=== PATIENT | male | born 1955 | race African-American/Black ===

== ENCOUNTER 2017-11-15 07:53 | Observation (INO) | payer BC ==
[2017-11-15 08:20] LABS: Hemoglobin 12.2 g/dL (14.0-18.0); Mean Corpuscular HGB CONC 31.9 g/dL (32.0-36.0); Mean Corpuscular Hemoglobin 30.4 pg (27.0-31.0); Mean Corpuscular Volume 95.2 fl (80.0-94.0); Mean Platelet Volume 8.4 fL (7.4-10.4); Platelet Count 189 thou/uL (130-400); RBC Distribution Width 12.6 % (11.5-14.5); Red Blood Cell (RBC) Count 4.02 mill/uL (4.70-6.10); White Blood Cell (WBC) Count 6.3 thou/uL (4.8-10.8)
[2017-11-15 08:37] LABS: Band 6 % (5-11); Eosinophils 2 % (0-10); Lymphocytes 29 % (21-51); MDiff Complete? YES; Monocytes 8 % (0-10); Neutrophil 54 % (42-75); RBC Morphology Normal
[2017-11-15 08:40] LABS: ALT (SGPT) 26 U/L (8-55); AST (SGOT) 24 U/L (5-34); Alkaline Phosphatase 66 U/L (40-150); Anion Gap 12 mmol/L (10-20); BUN (Urea Nitrogen) 21 mg/dL (8.4-25.7); Bilirubin, Total 0.8 mg/dL (0.2-1.2); CK (CPK) 221 U/L (30-200); Calc. Creatinine Clearance 0 mL/min (70-130); Carbon Dioxide 26 mmol/L (23-31); Chloride 103 mmol/L (98-107); Estimated GFR-MDRD 62; Globulin 3.2 g/dL (2.4-3.5); Glucose 208 mg/dL (80-115); Potassium 3.9 mmol/L (3.5-5.1); Protein, Total 7.2 g/dL (5.8-8.1); Sodium 137 mmol/L (136-145)
[2017-11-15 08:45] LABS: CKMB 3.4 ng/mL (0-6.6); Troponin I 0.039 ng/mL (< 0.028)
--- NOTE | 2017-11-15 09:00 | RAD ---
PA AND LATERAL CHEST: Date: 11/15/17 HISTORY: Cough and chest discomfort. Back pain. COMPARISON: 11/14/15. FINDINGS: There has been interval resolution of the bilateral pleural effusions noted on the prior exam. The filiberto ngs are clear on today's examination. Cardiac silhouette is at the upper limits of normal to borderli ne enlarged. The pulmonary vasculature is within normal limits. Degenerative changes noted in the spi ne. No other interval change. IMPRESSION: 1. Resolution of bilateral pleural effusions. 2. No acute cardiopulmonary process. 3. Upper limits of normal to borderline cardiomegaly. POS: [facility]
[2017-11-15 11:56] LABS: Troponin I 0.043 ng/mL (< 0.028)
[2017-11-15 12:38] VITALS: BMI 36.2
[2017-11-15] MEDS ORDERED: Dextrose 50% Abboject 50 ML SYRINGE SLOW IVP PRN (13:47)
[2017-11-15] MEDS ORDERED: Acetaminophen 325 MG TAB PO PRN (13:47)
[2017-11-15] MEDS ORDERED: HumaLOG 300 UNITS/3 ML VIAL SC PRN ×2 (13:47)
[2017-11-15] MEDS ORDERED: Dextrose 5% in Water 1,000 ML IV PRN (13:47)
[2017-11-15] MEDS ORDERED: Ondansetron ODT 4 MG TAB PO PRN (13:47)
[2017-11-15] MEDS ORDERED: Docusate 100 MG CAP PO PRN (13:47)
[2017-11-15] MEDS ORDERED: hydrALAZINE 20 MG/ML VIAL SLOW IVP PRN (13:59)
[2017-11-15] MEDS ORDERED: Benzonatate 100 MG CAP PO PRN (14:01)
[2017-11-15] MEDS ORDERED: Furosemide 40 MG TAB PO SCH (14:15)
[2017-11-15 14:59] LABS: Troponin I 0.039 ng/mL (< 0.028)
[2017-11-15] MEDS: metFORMIN 500 MG TAB PO SCH (17:15)
--- NOTE | 2017-11-15 18:30 | HP-2 ---
CODE STATUS: FULL. PRIMARY CARE PHYSICIAN: [facility]. ATTENDING: Gaviota Lincoln MD RESIDENT: Jackelyn Samayoa DO HISTORIAN: Patient. CHIEF COMPLAINT: Chest pain with cough. HISTORY OF PRESENT ILLNESS: The patient is a 62-year-old male with past medical history of hypertens ion, diabetes, hyperlipidemia, obesity, diastolic CHF, and peripheral vascular disease who presented to ED with chest pain associated with cough x3 days. Reports that cough began first as dry and nonpr oductive. No fever, but does have night sweats and a "tickle in his throat." He has tried Anna-Selt zer to relieve the pain. He began having the chest pain after he coughed. Pain is sharp in nature a nd resolves after the coughing episode. The patient was seen in the ED, found to have a HEART score of 5 and indeterminate troponin, so was admitted to the hospital for chest pain rule out. PAST MEDICAL HISTORY: 1. Type 2 diabetes. 2. Hypertension. 3. Obesity. 4. Diastolic congestive heart failure with a most recent echo in 2016 with ejection fraction of 60%- 65%. 5. Hyperlipidemia. 6. Peripheral vascular disease, status post 3 toe amputations. PAST SURGICAL HISTORY: 1. Amputation of left first, second, and third digits. 2. Bilateral cataract surgery. ALLERGIES: No known drug allergies. MEDICATIONS: 1. Amlodipine 10 mg daily. 2. Aspirin 81 mg daily. 3. Atorvastatin 80 mg daily. 4. Carvedilol 12.5 mg b.i.d. 5. Lisinopril 40 mg daily. 6. Metformin 500 mg b.i.d. FAMILY HISTORY: No cardiac family history or history of CAD. SOCIAL HISTORY: Denies tobacco, alcohol, and drug use. REVIEW OF SYSTEMS: 12-point review of systems was performed and found to be positive for those menti oned in the HPI as well as generalized fatigue, weakness, dyspnea on exertion, shortness of breath, o rthopnea. Denies nausea, vomiting, diarrhea. Reports lower extremity swelling that is chronic. PHYSICAL EXAMINATION: VITAL SIGNS: Blood pressure 160/82, pulse 75, respiratory rate 18, T-max 98.4, pulse ox 94% on room air, current weight 136 kilograms. GENERAL: The patient is alert and oriented x4, in no acute distress. He is obese, appropriately int eractive. EYES: PERRLA. EOMI. ENT: Oropharynx within normal limits. NECK: Supple without lymphadenopathy. CARDIOVASCULAR: Regular rate and rhythm. No murmurs. 2+ radial pulses. RESPIRATORY: Normal effort. No retractions. Clear to auscultation bilaterally. ABDOMEN: Soft, nontender. No masses or distention palpated. EXTREMITIES: No clubbing, cyanosis. Does have 2+ pitting edema, greater in the left versus the righ t. MUSCULOSKELETAL: Structure within normal limit. Tone within normal limit. Left toes [address] atus post amputation, and the right second toe has a chronic ulcer on the dorsum of the foot. NEUROLOGIC: No focal deficits. PSYCHIATRIC: Appropriate. LABORATORY DATA: CBC: White blood cell count 6.3, hemoglobin 12.2, hematocrit 38.3, platelets 189. CMP: Sodium 137, potassium 3.9, chloride 103, CO2 of 26, BUN 21, creatinine 1.4, glucose 208, GFR gr eater than 90, calcium 9, total protein 7.2, albumin 4, AST 24, ALT 26, alkaline phosphatase 66, tota l bilirubin 0.8. CK 221, CK-MB 3.4, troponin 0.039. Chest x-ray shows no acute findings. EKG, normal sinus rhythm. There is evidence of first-degree AV block and there are T-wave inversions in leads V4 through V6 with a rate of 72. ASSESSMENT AND PLAN: 1. Atypical chest pain, HEART score of 5. We will admit to telemetry observation. We will perform an exercise Cardiolite stress test in the morning. We will hold the beta catrina for that portion an d n.p.o. at midnight. This is likely related to acute viral illness. We will give Tessalon Perles f or cough. Flu swabs were negative. We will check magnesium, phos, TSH, and fasting lipid panel. 2. Type 2 diabetes. We will continue home medications, sliding scale insulin, before meals and at b edtime Accu-Cheks. In the clinic chart, the last A1c was 6.6. 3. Hypertension. We will continue lisinopril and amlodipine. We will give p.r.n. hydralazine IV an d hold carvedilol for stress test. 4. Diastolic congestive heart failure. Last echo done in 2015. The patient with orthopnea and lowe r extremity edema. We will repeat echo in the hospital to evaluate for worsening and start Lasix 20 mg daily. 5. Right second toe ulcer, following Podiatry and Wound Care outpatient. We will consult Wound Care while in the hospital. DISPOSITION AND LENGTH OF HOSPITAL STAY: 1-2 days. Symptomatic medications will be provided. History and physical exam as well as management was discussed with Dr. Gaviota Lincoln.
[2017-11-15] MEDS ORDERED: Lisinopril 20 MG TAB PO SCH (21:00)
[2017-11-15] MEDS ORDERED: Atorvastatin Calcium 40 MG TAB PO SCH (21:00)
[2017-11-16 05:54] LABS: Cardiac Risk 2.8 (Less than 4.5); Magnesium 1.9 mg/dL (1.6-2.6)
[2017-11-16] MEDS ORDERED: Furosemide 40 MG TAB PO SCH (07:30)
[2017-11-16] MEDS: metFORMIN 500 MG TAB PO SCH (08:44)
--- NOTE | 2017-11-16 08:47 | PDOC.FM ---
- Subjective Subjective: Patient lying comfortably in bed this afternoon. He reports feeling better although cough is still "nagging." He denies CP and SOB and reports decreased swelling in his LE. BP slightly elevated overnight but did not get PO meds due to NPO status. No other events overnight. - Objective MAR Reviewed: Yes Vital Signs & Weight: Vital Signs (12 hours) Temp Pulse Resp BP BP Pulse Ox 11/16/17 07:35 98.7 F 66 16 187/83 H 95 11/16/17 04:50 98.5 F 65 20 164/70 H 95 11/16/17 00:05 159/74 H 11/15/17 23:49 98.4 F 65 16 185/88 H 96 Weight Weight 130.181 kg I&O: 11/15/17 11/16/17 11/17/17 06:59 06:59 06:59 Intake Total 1040 Balance 1040 Result Diagrams: 11/15/17 08:09 11/15/17 08:09 <Jackelyn Samayoa - Last Filed: 11/16/17 13:15> - Objective Vital Signs & Weight: Vital Signs (12 hours) Temp Pulse Resp BP BP Pulse Ox 11/16/17 11:30 98.6 F 65 20 153/70 H 95 11/16/17 08:56 66 11/16/17 08:00 98.7 F 66 16 11/16/17 07:35 98.7 F 66 16 187/83 H 95 11/16/17 04:50 98.5 F 65 20 164/70 H 95 Weight Weight 130.181 kg I&O: 11/15/17 11/16/17 11/17/17 06:59 06:59 06:59 Intake Total 1040 Balance 1040 Result Diagrams: 11/15/17 08:09 11/15/17 08:09 <Carlos Nazario - Last Filed: 11/16/17 13:49> Phys Exam - Physical Examination Constitutional: NAD HEENT: PERRLA, moist MMs Neck: full ROM Respiratory: no wheezing, no rales, clear to auscultation bilateral Cardiovascular: RRR 2/6 systolic murmur Gastrointestinal: soft, non-tender Musculoskeletal: pulses present 1+ edema in b/l LE, R foot with 2nd toe ulceration, no drainage Neurological: moves all 4 limbs Psychiatric: A&O x 3 <Jackelyn Samayoa - Last Filed: 11/16/17 13:15> Dx/Plan (1) Atypical chest pain Code(s): R07.89 - OTHER CHEST PAIN Status: Acute (2) Viral URI with cough Code(s): J06.9 - ACUTE UPPER RESPIRATORY INFECTION, UNSPECIFIED; B97.89 - OTH VIRAL AGENTS THE CAUSE OF DISEASES CLASSD ELSWHR Status: Acute (3) Diastolic CHF Code(s): I50.30 - UNSPECIFIED DIASTOLIC (CONGESTIVE) HEART FAILURE Status: Acute (4) Diabetes mellitus type 2, noninsulin dependent Code(s): E11.9 - TYPE 2 DIABETES MELLITUS WITHOUT COMPLICATIONS Status: Chronic (5) Essential hypertension Code(s): I10 - ESSENTIAL (PRIMARY) HYPERTENSION Status: Chronic (6) HLD (hyperlipidemia) Code(s): E78.5 - HYPERLIPIDEMIA, UNSPECIFIED Status: Chronic - Plan Plan: Atypical CP - likely pleuritic CP with recent URI and cough - HEART-5 , stress test today, d/c pending results - tessalon perles for cough - trops indeterminate but downtrending Viral URI - symptomatic treatment Diastolic CHF - symptomatic - Lasix 20mg daily - echo results pending - f/u outpatient HTN - hold BB for stress test, resume after - elevated this morning, prn Hydralazine T2DM - continue home Metformin - last hgA1c 6.6 in clinic - accuchecks and SSI HLD - continue home Atorvastatin - FLP wnl R 2nd Toe Ulceration - consulted wound care - continue wound care and podiatry care outpatient <Jackelyn Samayoa - Last Filed: 11/16/17 13:15> Attending Addendum - Attending Addendum I personally evaluated the patient and discussed the management with Dr. Samayoa. I agree with the History, Examination, Assessment and Plan documented above with any addition or exceptions noted below. Noncardiac CP resolved. BP elevated off meds, resuming. Cardiolyte neg for ischemia, EF35-40%. Stable for d/c with f/u with [facility] to read Echo and eval for new SCHF on dCHF. <Carlos Nazario - Last Filed: 11/16/17 13:49>
[2017-11-16] MEDS ORDERED: Furosemide 20 MG TAB PO SCH (09:00)
[2017-11-16] MEDS ORDERED: Aspirin 81 mg Enteric Coated Tablet PO SCH (09:00)
[2017-11-16] MEDS ORDERED: Amlodipine 10 MG TAB PO SCH (09:00)
[2017-11-16 12:41] VITALS: BP 153/70; TEMP 98.6
--- NOTE | 2017-11-16 13:28 | NM ---
NUCLEAR MEDICINE CARDIAC MYOCARDIAL PERFUSION SPECT EJECTION FRACTION STUDY WALL MOTION CINE: Date: 11/16/17 HISTORY: 62-year-old male with chest pain, hypertension, diabetes mellitus, dyslipidemia, and congestive heart disease. TECHNIQUE: Number of days: 2 Rest study: Tc99m sestamibi (Cardiolite) dose: 30.0 mCi Pharmacologic stress: adenosine dose: 73.4 Stress study: Tc99m sestamibi (Cardiolite) dose: 29.10 mCi FINDINGS: CARDIAC (MYOCARDIAL PERFUSION) SPECT There are no fixed or reversible left ventricular myocardial perfusion defects. EJECTION FRACTION STUDY EF = 34% Dilated chamber. WALL MOTION CINE There is global hypokinesis. IMPRESSION: 1. No evidence of reversible ischemia. 2. Very low left ventricular ejection fraction of 34%, with global hypokinesis. ELIEZER Rivas POS: [facility]
[2017-11-16] MEDS ORDERED: Carvedilol 6.25 MG TAB PO SCH (21:00)
== END 2017-11-16 15:15 | disposition home or self-care (01) ==
LOC: ERS 07:53 → 2SW 10:56
PROVIDERS: ADMIT Family Medicine; ATTEND Family Medicine
DX: R07.89 Other chest pain (principal); J06.9 Acute upper respiratory infection, unspecified; I11.0 Hypertensive heart disease with heart failure; I50.30 Unspecified diastolic (congestive) heart failure; E11.51 Type 2 diabetes mellitus with diabetic peripheral angiopathy without gangrene; E78.5 Hyperlipidemia, unspecified; L97.519 Non-pressure chronic ulcer of other part of right foot with unspecified severity; B97.89 Other viral agents as the cause of diseases classified elsewhere; E66.9 Obesity, unspecified; Z68.35 Body mass index [BMI] 35.0-35.9, adult; Z79.82 Long term (current) use of aspirin; Z79.84 Long term (current) use of oral hypoglycemic drugs; Z79.899 Other long term (current) drug therapy; Z89.022 Acquired absence of left finger(s)
CPT/HCPCS: 36415; 36416; 71046; 78452; 80053; 80061; 82550; 82553; 83735; 84443; 84484; 85025; 93005; 93017; 93306; 94760; 96374; A9500; G0378; J0153; J0360